=== PATIENT | male | born 1960 | race Two or more races ===

== ENCOUNTER 2016-12-18 06:09 | Day surgery (SDC) | payer BC ==
[~2016-12-18] VITALS: Ht 175.3 cm; Wt 77.1 kg
[2016-12-18] VITALS (8 sets, daily range): BP systolic 117–133; BP diastolic 70–83
[~2016-12-18 06:09] MED LIST: ACYCLOVIR400 MG ORAL; AMBIEN10 M1 ORAL
[2016-12-18] MEDS ORDERED: Ropivacaine 5mg/ml Vial 30ml INJ ONE (06:55)
[2016-12-18] MEDS ORDERED: Bupivacaine w/Epi 0.75% 30ml Vial INJ ONE (06:55)
[2016-12-18] MEDS ORDERED: EPINEPHrine 1mg/1ml Amp ONE (06:55)
--- NOTE | 2016-12-18 07:06 | Pre-Procedure Note/Attestation ---
Pre-Procedure Note/Attestation Complete Prior to Procedure Planned Procedure: right Procedure Narrative: Right shoulder arthroscopy with subacromial decompression and possible SLAP repair Indications for Procedure Pre-Operative Diagnosis: Right shoulder subacromial tendonitis and labral tear Attestation I attest that I discussed the nature of the procedure; its benefits; risks and complications; and alternatives (and the risks and benefits of such alternatives ), prior to the procedure, with the patient (or the patient's legal access representative). I attest that, if there was a reasonable possibility of needing a blood transfusion, the patient (or the patient's legal access representative) was given the [facility] standardized written summary, pursuant to the Seamus Ephraim Blood Safety Act ([place] Health and Safety Code # 1645, as amended). I attest that I re-evaluated the patient just prior to the surgery and that there has been no change in the patient's H&P, except as documented below: MIKE SORIA Dec 18, 2016 07:06
[2016-12-18] MEDS ORDERED: Tylenol #3 tab (300mg/30mg) ORAL PRN ×2 (07:15→10:45)
[2016-12-18] MEDS ORDERED: HYDROmorphone 1mg/ml Carpuject SUBQ PRN (07:15)
[2016-12-18] MEDS ORDERED: Norco 5mg/325mg tab ORAL PRN ×2 (07:15→10:45)
[2016-12-18] MEDS ORDERED: Ropivacaine 2mg/ml Amp 20ml INJ ONE ×2 (07:23→07:24)
[2016-12-18] MEDS ORDERED: NS Irrig 4000ml IRRIG ONE ×2 (07:30→09:00)
[2016-12-18] MEDS ORDERED: LR 1000ml 1,000 ML IVLG SCH (08:21)
--- NOTE | 2016-12-18 08:27 | Immediate Post-Op Evaluation ---
Immediate Post-Op Evalulation Immediate Post-Op Evalulation Procedure: Right shoulder scope, SAD Date of Evaluation: Dec 18, 2016 Time of Evaluation: 09:40 IV Fluids: 1100 Blood Pressure Systolic: 124 Blood Pressure Diastolic: 71 Pulse Rate: 83 Respiratory Rate: 20 O2 Sat by Pulse Oximetry: 94 Temperature (Fahrenheit): 97.0 Pain Score (1-10): 0 Nausea: No Vomiting: No Complications No complication Patient Status: awake, patent, none Hydration Status: adequate Drug: Ancef Given Within 1 Hr of Incision: Yes Time Given: 07:30 ROB WICK M.D. Dec 18, 2016 08:27
--- NOTE | 2016-12-18 08:27 | Anethesia Preoperative Eval ---
Anesthesia Pre-op PMH/ROS General Date of Evaluation: Dec 18, 2016 Time of Evaluation: 07:15 Anesthesiologist: Becky ASA Score: ASA 1 Mallampati Score Class I : Soft palate, uvula, fauces, pillars visible Class II: Soft palate, uvula, fauces visible Class III: Soft palate, base of uvula visible Class IV: Only hard plate visible Mallampati Classification: Class II Surgeon: Pitor Diagnosis: Right shoulder rotator cuff tendonitis Surgical Procedure: Right shoulder scope, SAD Family History: no anesthesia problems Allergies: Coded Allergies: No Known Allergies (Unverified , 12/17/16) Medications: see eMAR Past Medical History Cardiovascular: Denies: HTN, CAD, DC, valve dz, arrhythmia, other Pulmonary: Denies: asthma, COPD, TAMAR, other Gastrointestinal/Genitourinary: Denies: GERD, CRI, ESRD, other Neurologic/Psychiatric: Denies: dementia, CVA, depression/anxiety, TIA, other Endocrine: Denies: DM, hypothyroidism, steroids, other HEENT: Denies: cataract (L), cataract (R), glaucoma, VENETIE IRA (L), VENETIE IRA (R), other Hematology/Immune: Denies: anemia, DVT, bleeding disorder, other Musculoskeletal/Integumentary: Denies: OA, RA, DJD, DDD, edema, other PMH Narrative: Denies PSxH Narrative: Lumbar microdiscectomy Anesthesia Pre-op Phys. Exam Physician Exam Last Vital Signs Date Time Temp Pulse Resp B/P (MAP) Pulse Ox O2 Delivery O2 Flow Rate FiO2 12/18/16 06:41 97.7 68 20 124/83 97 Room Air Constitutional: NAD Neurologic: CN 2-12 intact Cardiovascular: RRR, no M/R/G Respiratory: CTA Gastrointestinal: S/NT/ND Airway Exam Mallampati Score: Class II MO: full ROM: full Teeth: intact Anesthesia Pre-op A/P Labs WNL Risk Assessment & Plan Assessment: Healthy male for shoulder scope Plan: GA, LMA, interscalene block for post op pain, surgeon request Status Change Before Surgery: No Pre-Antibiotics Drug: Ancef Given Within 1 Hr of Incision: Yes Time Given: 07:30 ROB WICK M.D. Dec 18, 2016 08:27
[2016-12-18] MEDS ORDERED: LR 1000ml 1,000 ML IV SCH (08:30)
[2016-12-18] MEDS ORDERED: Midazolam 2mg/2ml Inj IVP PRN (08:30)
[2016-12-18] MEDS ORDERED: Meperidine 50mg/ml Inj(FOR RIGORS ONLY) IM ONE (08:30)
[2016-12-18] MEDS ORDERED: Ketorolac 30mg Inj IV PRN (08:30)
[2016-12-18] MEDS ORDERED: Hydromorphone 0.5mg/0.5ml inj IVP PRN (08:30)
[2016-12-18] MEDS ORDERED: DiphenhydrAMINE 50mg/ml Inj IVP PRN (08:30)
[2016-12-18] MEDS ORDERED: Metoprolol 5mg/5ml Inj ONE (09:00)
[2016-12-18] MEDS ORDERED: Propofol 200mg/20ml IV ONE (09:00)
[2016-12-18] MEDS ORDERED: Lidocaine 1% MPF 10mg/ml 5ml ONE (09:00)
[2016-12-18] MEDS ORDERED: Midazolam 2mg/2ml Inj ONE (09:00)
[2016-12-18] MEDS ORDERED: LR 1000ml ONE (09:00)
[2016-12-18] MEDS ORDERED: Sterile Water Irrig 1000ml IRRIG ONE (09:00)
[2016-12-18] MEDS ORDERED: fentaNYL 100 mcg/2 mL IV ONE (09:00)
[2016-12-18] MEDS ORDERED: Sodium Chloride 10ml vial INJ ONE (09:00)
--- NOTE | 2016-12-18 09:29 | Brief Operative Note ---
Immediate Post Operative Note Operative Note Pre-op Diagnosis: Right shoulder subacromial tendonitis and labral tear Procedure: Right shoulder arthroscopy with SAD and acromioplasty Post-op Diagnosis: same as pre-op Findings: consistent w/pre-op dx studies Surgeon: Piotr Anesthesiologist: William Anesthesia: general, regional, local Specimen: none Complications: none Condition: stable Fluids: 0 Estimated Blood Loss: minimal Drains: none Implant(s) used?: No MIKE SORIA Dec 18, 2016 09:29
[2016-12-18] MEDS ORDERED: D5 1/2NS 1,000 ML IV SCH (12:00)
--- NOTE | 2016-12-18 17:00 | Operative Note - Dictated ---
DATE OF OPERATION: 12/18/2016 SURGEON: Chandler Saldaña M.D. PROGRESSIVE DIE MAKER: None. ANESTHESIA: Regional plus general plus local. COMPLICATIONS: None. ANTIBIOTICS: Ancef. PREOPERATIVE DIAGNOSES: Right shoulder: 1. Subacromial tendinitis/bursitis. 2. Anterolateral acromial bone spur. 3. Undersurface distal clavicle spur. 4. Intra-articular synovitis. POSTOPERATIVE DIAGNOSES: Right shoulder: 1. Subacromial tendinitis/bursitis. 2. Anterolateral acromial bone spur. 3. Undersurface distal clavicle spur. 4. Intra-articular synovitis. PROCEDURES PERFORMED: Right shoulder arthroscopy with: 1. Subacromial decompression/bursectomy. 2. Acromioplasty. 3. Partial distal clavicle resection (spur). 4. Shoulder joint synovectomy. BACKGROUND: The patient has had longstanding right shoulder pain refractory to nonoperative management. Preoperative MRI confirmed the diagnosis. He has had a previous rupture of the right proximal biceps tendon. All risks, benefits, and alternatives were discussed in great detail. Risks included, but were not limited to, bleeding, infection, neurovascular injury, need for additional surgical intervention, failure of pain relief, arthrofibrosis, complications of anesthesia, blood clots, stroke, heart attack, and potentially . He understood these risks, amongst others, and consent was signed. PROCEDURE IN DETAIL: The patient was brought into the operating room and placed supine on to a beach chair. He was then placed in a beach chair position with all bony prominences appropriately padded. The right shoulder was correctly verified for surgical site and prepped and draped in standard sterile fashion. Examination under anesthesia revealed symmetric range of motion of the contralateral side, no laxity, and a proximal biceps rupture/Ernst deformity. Anterior, lateral, and posterior portals were marked and injected with 20 mL of 0.25% Marcaine with epinephrine. A diagnostic arthroscopy was then undertaken. It revealed the followin. Absent biceps. 2. Degenerative tear, superior and anterior labrum. 3. Diffuse synovitis. 4. Normal glenohumeral joint. 5. Normal axillary pouch. 6. Normal rotator cuff and attachment site. 7. Abundant subacromial bursitis. 8. Anterolateral acromial bone spur. 9. Distal inferior clavicle bone spur. After probing all intr-articular structures, radiofrequency device and shaver were used to perform a partial labral resection. Radiofrequency device was then used to perform wide synovectomy. Throughout a full range of motion, there is no full thickness tear on the rotator cuff. The small area at the rotator interval was marked with a Prolene suture in case it was a full-thickness tear, in order to address from the bursal side. All fluid and debris were then evacuated from the intra-articular space and attention was turned to the subacromial space. There was abundant subacromial bursitis and tendonitis. A radiofrequency device was used to clear the inflamed tissue. The anterolateral acromial bone spur and the inferior distal clavicle bone spur were cleared of soft tissue and clearly identified. A 4.0 mm bur was used to perform an acromioplasty. The same bur was used to perform a distal clavicle spur resection. The Prolene suture was identified from the bursal side and there was no evidence of full-thickness rotator cuff tear. All fluid and debris were evacuated from the subacromial space. A 10 mL 0.25% Marcaine with epinephrine were injected. The wounds were copiously irrigated and reapproximated using 4-0 Monocryl in subcuticular fashion. Steri-Strips were used over Mastisol. Dry sterile dressing was applied. A sling was fitted. He tolerated the procedure well. There were no complications. I attest that I performed the entire operation. He was transferred to recovery in good condition. Chandler Saldaña M.D. DR: DASHA JOB#: [id number] CC: [id number]
== END 2016-12-18 11:25 | disposition home or self-care (01) ==
LOC: SUR 06:09
DX: M75.51 Bursitis of right shoulder (principal); M65.811 Other synovitis and tenosynovitis, right shoulder; S43.401A Unspecified sprain of right shoulder joint, initial encounter; X58.XXXA Exposure to other specified factors, initial encounter; Y93.9 Activity, unspecified; Y92.9 Unspecified place or not applicable
CPT/HCPCS: 23140; 29820; 29826; J0171; J0690; J2250; J2405; J2704; J2795; J3010; J7120; 94003; 94150